=== PATIENT | female | born 1990 ===

== ENCOUNTER 2018-07-09 17:47 | Emergency (ER) | payer BC ==
[~2018-07-09] VITALS: Ht 162.5 cm; Wt 59.4 kg
--- NOTE | ~2018-07-09 | EKG ---
[place], [place] ELECTROCARDIOGRAM REPORT NAME: ROBERTO EVANS UNIT #: [id number] ROOM: DOCTOR: EPIPHANY DRAFT REPORT BIRTHDATE: [birth year] [facility] Test Date: 2018-07-09 Test Time: 18:03:59 Pat Name: ROBERTO EVANS Department: ER Room: 9 Gender: F Primer Inspector: Devon Richards : 1990 Requested By: BRENDEN WELLS DNP Order Number: [id number] Reading MD: Mustapha Baez MD Measurements Intervals [place] Rate: 61 P: 51 [place]: 148 QRS: 69 QRSD: 92 T: 30 QT: 422 QTc: 425 Interpretive Statements Sinus rhythm Atrial premature complex Probable left atrial enlargement RSR' in V1 or V2, probably normal variant Electronically Signed On 07-12-2018 8:18:53 PDT by Mustapha Baez MD CM:EKGRPT:ELECTROCARDIOGRAM REPORT 1803 BRENDEN WELLS DNP EPIPHANY DRAFT REPORT
--- NOTE | ~2018-07-09 | EKG ---
[place], [place] ELECTROCARDIOGRAM REPORT NAME: ROBERTO EVANS UNIT #: [id number] ROOM: DOCTOR: EPIPHANY DRAFT REPORT BIRTHDATE: [birth year] [facility] Test Date: 2018-07-09 Test Time: 19:36:24 Pat Name: ROBERTO EVANS Department: Room: Gender: F Dolly Operator: EKG.[place] : 1990 Requested By: BRENDEN WELLS DNP Order Number: [id number] Reading MD: Measurements Intervals [place] Rate: 66 P: 65 [place]: 149 QRS: 77 QRSD: 90 T: 49 QT: 411 QTc: 431 Interpretive Statements Sinus rhythm CM:EKGRPT:ELECTROCARDIOGRAM REPORT 35 [id number] [facility] BRENDEN WELLS DNP
--- NOTE | ~2018-07-09 | EKG ---
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
--- NOTE | ~2018-07-09 | EKG ---
[place], [place] ELECTROCARDIOGRAM REPORT NAME: ROBERTO EVANS UNIT #: [id number] ROOM: DOCTOR: EPIPHANY DRAFT REPORT BIRTHDATE: [address] 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
--- NOTE | ~2018-07-09 | EKG ---
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
[2018-07-09 18:12] LABS: BASO % 0.1 % (0.0-1.0); EOS % 0.3 % (1.0-4.0); HEMATOCRIT 39.9 % (37.0-47.0); HEMOGLOBIN 13.9 g/dl (12.0-16.0); LYMPH # 2.7 10*3/uL (1.3-4.4); LYMPH % 39.8 % (27.0-41.0); MEAN CELL VOLUME 88.5 fl (81.0-99.0); MEAN CORPUSCULAR HGB 30.8 pg (27.0-31.0); MEAN CORPUSCULAR HGB CONC 34.8 g/dl (33.0-37.0); MEAN PLATELET VOLUME 10.5 fl (9.6-12.3); MONO # 0.3 10*3/uL (0.1-1.0); MONO % 4.7 % (3.0-9.0); NEUT # 3.7 10*3/uL (2.3-7.9); NEUT % 54.8 % (47.0-73.0); PLATELET COUNT AUTOMATED 221 10*3/uL (130-400); RED BLOOD COUNT 4.51 10*6/uL (4.10-5.10); RED CELL DISTRI WIDTH 11.2 % (0-14.5); WHITE BLOOD COUNT 6.7 10*3/uL (4.8-10.8)
[2018-07-09 18:27] LABS: ALBUMIN 3.9 gm/dl (3.1-4.5); ALKALINE PHOSPHATASE 38 U/L (45-117); BUN 16 mg/dl (7-24); CHLORIDE 102 mmol/L (98-107); CREATININE 1.11 mg/dL (0.55-1.02); POTASSIUM 3.3 mmol/L (3.5-5.1); SGOT/AST 27 IU/L (3-35); SGPT/ALT 22 U/L (12-78); SODIUM 138 mmol/L (136-145); TOTAL PROTEIN 7.5 gm/dL (6.4-8.2)
[2018-07-09 20:08] LABS: BILIRUBIN NEGATIVE (NEGATIVE); BLOOD NEGATIVE (NEGATIVE); CLARITY CLEAR (CLEAR); COLOR YELLOW (YELLOW); GLUCOSE NEGATIVE (NEGATIVE); KETONE NEGATIVE (NEGATIVE); LEUKO ESTERASE NEGATIVE (NEGATIVE); NITRITE NEGATIVE (NEGATIVE); PH 7.5 (5.0-9.0); SPECIFIC GRAVITY <= 1.005 (1.005-1.030)
[2018-07-09 20:13] LABS: BACTERIA 2+; RBC 0-2 rbc/hpf (0-2)
== END 2018-07-09 22:28 | disposition home or self-care (01) ==
LOC: ED 17:47
PROVIDERS: Nurse Practitioner Family
DX: K80.80 Other cholelithiasis without obstruction (principal); R07.89 Other chest pain